=== PATIENT | male | born 1995 | race African-American/Black ===

== ENCOUNTER → 2017-06-25 | Outpatient (CLI) | payer OTHER ==
--- NOTE | 2017-06-25 15:19 | Diagnostic Imaging Report ---
MRI of the right ankle without contrast. History: Ankle pain. Fall. Technique: Utilizing a high-field 1.5T magnet, the following sequences were acquired: PD FS in all 3 planes with additional axial PD. Comparison: None. Findings: Achilles tendon and plantar fascia: The Achilles tendon and plantar fascia are normal. Cartilage and bone: Negative for osteochondral lesion of the tibiotalar and subtalar joints. Negative for fracture, osteonecrosis, or dislocation. There is focal bone marrow edema along the medial talus and adjacent medial malleolus likely due to a contusion. Medial ankle: There is a mild sprain of the deltoid ligament complex. The majority of the fibers are intact. The medial flexor tendons are normal. There is a physiologic amount of fluid within the tendon sheath of FHL. Lateral ankle: There is a high-grade tear involving the anterior talofibular and calcaneofibular ligaments with an effusion/synovitis in the anterior lateral gutter. Additionally, there is moderate soft tissue edema about the lateral ankle. The posterior talofibular ligaments are intact. The syndesmotic ligaments are intact. The peroneal tendons are normal. Anterior ankle: The anterior extensor tendons are normal. Other findings: The tibiotalar joint effusion and synovitis. Impression: High-grade tear involving the anterior talofibular and calcaneofibular ligaments with an effusion/synovitis in the anterior lateral gutter. Additionally, there is moderate soft tissue edema about the lateral ankle. Mild sprain of the deltoid ligament complex. The majority of the fibers are intact. Focal bone marrow edema along the medial talus and adjacent medial malleolus likely due to a contusion. Signed by: Dr. Rasta Ojeda M.D. on 06/25/2017 3:16 PM
== END ==
LOC: MRI 13:25
PROVIDERS: ATTEND Family Medicine
DX: S93.411D Sprain of calcaneofibular ligament of right ankle, subsequent encounter (principal)